=== PATIENT | female | born 1990 | race Caucasian/White ===

== ENCOUNTER 2024-01-24 14:38 | Emergency (ER) | payer OTHER, SELFPAY ==
[2024-01-24 14:48] VITALS: BP 144/81; PULSE 109; RESP 18; TEMP 36.9; O2SAT 99
[2024-01-24 15:03] VITALS: BP 144/81; PULSE 109; RESP 18; TEMP 36.9; O2SAT 99
--- NOTE | 2024-01-24 15:08 | ED.URI ---
HPI - URI/Sore Throat General Chief Complaint: Dental/Oral Stated Complaint: Mouth Problem Time Seen by Provider: 01/24/24 15:11 Source: patient and RN notes reviewed Mode of arrival: ambulatory Limitations: no limitations History of Present Illness HPI Narrative: 33-year-old female presents with concern of for improving sore throat. She reports she has had sore throat for 4-5 days itis improving but now she has red bumps on the top of her mouth and the size of her tongue feel bumpy. Reports she has been using salt water gargles and Listerine and taking Tylenol. She denies trouble swallowing. Reports swallowing has painful several days ago but that has resolved. She denies any lesions, rash. MD elicited complaint: sore throat Related Data Home Medications Medication Instructions Recorded Confirmed No Home Medications 01/24/24 01/24/24 Allergies Allergy/AdvReac Type Severity Reaction Status Date / Time No Known Allergies Allergy Verified 01/24/24 14:49 Review of Systems Review of Systems: CONSTITUTIONAL: Denies malaise, chills, sweats, or fever. EYES: Denies visual changes, redness, or discharge. ENT: Reports rhinorrhea, congestion, improving sore throat. Reports bumps on the side of her mouth sinus pain, otalgia CARDIOVASCULAR: Denies chest pain, palpitations, or edema. RESPIRATORY: Denies cough. Denies dyspnea. GASTROINTESTINAL: Denies abdominal pain, nausea, vomiting, diarrhea SKIN: Denies rash or itching. MUSCULOSKELETAL: Denies myalgia. NEUROLOGIC: Denies headache. All systems reviewed & are unremarkable except as noted in HPI and below PMFSH Comments At time of signature, agree with nursing past medical, surgical, social and family history. There is no relevant family history pertinent to the presenting complaint Exam Narrative: GENERAL: Well-appearing, well-nourished, and in no acute distress. HEAD: Normocephalic EYES: PERRLA, conjunctivae clear ENT: Nares clear. Mucous membranes moist. TM pearly paredes with sharp light reflex bilaterally; no tragal tenderness. Oropharynx not erythematous without lesions, a few erythematous macules noted to the roof of the mouth. Tonsils not enlarged and without exudate, no drooling, no hoarseness, no trismus, uvula midline. NECK: Supple. No lymphadenopathy CHEST: Clear to auscultation, breath sounds equal. No wheezing, rhonchi, rales, or stridor. No respiratory distress, speaks in full sentences. HEART: Regular rate and rhythm. No murmur heard. SKIN: Warm, dry, no rash. NEURO: Alert and oriented x3. PSYCH: Normal mood and affect Course Course Emergency Course: Patient is aware of diagnosis, understands and agrees to treatment plan. Anticipatory guidance given. Patient agrees to follow-up as directed and is aware of reasons to seek care at the emergency department. Portions of this record may have been created with voice recognition software Level of Care: Express Care Visit Vital Signs Vital signs: Vital Signs Temperature 98.4 F 01/24/24 14:48 Pulse Rate 109 H 01/24/24 14:48 Respiratory Rate 18 01/24/24 14:48 Blood Pressure 144/81 H 01/24/24 14:48 Pulse Oximetry 99 01/24/24 14:48 Oxygen Delivery Room Air 01/24/24 14:48 Temperature 98.4 F 01/24/24 15:03 Pulse Rate 109 H 01/24/24 15:03 Respiratory Rate 18 01/24/24 15:03 Blood Pressure 144/81 H 01/24/24 15:03 Pulse Oximetry 99 01/24/24 15:03 Oxygen Delivery Room Air 01/24/24 15:03 Reviewed. MDM - URI/Sore Throat MDM Narrative Medical decision making narrative: Differential diagnosis considered: Saunders virus, strep pharyngitis, allergic rhinitis, upper respiratory tract infection, sinusitis, rhinosinusitis, nasopharyngitis. viral pharyngitis, otitis media, otitis externa, pneumonia, bronchitis, viral cough syndrome, viral syndrome, and influenza. Exam findings show no acute concerns or changes; patient is non-toxic appearing and is in no distress. Patient i
== END 2024-01-24 15:14 | disposition home or self-care (01) ==
PROVIDERS: Emergency Provider Nurse Practitioner
DX: B34.9 Viral infection, unspecified (principal); E78.00 Pure hypercholesterolemia, unspecified
CPT/HCPCS: 99202; G0463